=== PATIENT | male | born 1945 | race Caucasian/White ===

== ENCOUNTER 2019-01-31 01:25 | Emergency (ER) | payer MEDICARE ==
[2019-01-31] MEDS ORDERED: SODIUM CHLORIDE 0.9% 500 ML 500 ML IV STA (01:44)
[2019-01-31] MEDS ORDERED: ONDANSETRON 4 MG/2 ML VIAL IVP STA (01:44)
--- NOTE | 2019-01-31 01:46 | ED ---
Nausea/Vomiting/Diarrhea HPI - General Chief complaint: Nausea/Vomiting/Diarrhea Stated complaint: NVD Time Seen by Provider: 01/31/19 01:31 Source: patient Mode of arrival: EMS Limitations: no limitations - History of Present Illness MD complaint: nausea, vomiting, diarrhea -: hour(s) Description of Vomiting: watery Description of Diarrhea: water Location: diffuse Severity: mild Quality: cramping Consistency: intermittent Improves with: none Worsens with: none Associated Symptoms: diaphoresis - Related Data Previous Rx's Medication Instructions Recorded Dicyclomine [Bentyl] 20 mg PO QID #15 tablet 01/31/19 Ondansetron Odt [Zofran ODT] 4 mg PO Q8HR PRN #10 tab 01/31/19 Allergies Allergy/AdvReac Type Severity Reaction Status Date / Time No Known Allergies Allergy Verified 02/20/17 19:40 Review of Systems ROS Statement: Those systems with pertinent positive or pertinent negative responses have been documented in the HPI. ROS Other: All systems not noted in ROS Statement are negative. Constitutional: Denies: fever, chills Respiratory: Denies: cough, dyspnea Cardiovascular: Denies: chest pain, palpitations, edema Gastrointestinal: Reports: as per HPI, abdominal pain, nausea, vomiting, diarrhea Genitourinary: Denies: dysuria, hematuria, testicular pain, testicular mass Musculoskeletal: Denies: back pain Skin: Denies: rash Neurological: Denies: headache, weakness, numbness Past Medical History Past Medical History: Diabetes Mellitus, Hyperlipidemia History of Any Multi-Drug Resistant Organisms: None Reported Past Surgical History: No Surgical Hx Reported Additional Past Surgical History / Comment(s): R. inguinalk hernia repair, bilat catracts Past Psychological History: Anxiety, Depression Smoking Status: Former smoker Past Alcohol Use History: Rare Past Drug Use History: None Reported General Exam Limitations: no limitations General appearance: alert, in no apparent distress Head exam: Present: atraumatic, normocephalic Eye exam: Present: normal appearance. Absent: scleral icterus, conjunctival injection ENT exam: Present: mucous membranes dry Respiratory exam: Present: normal lung sounds bilaterally. Absent: respiratory distress, wheezes, rales, rhonchi, stridor Cardiovascular Exam: Present: regular rate, normal rhythm, normal heart sounds. Absent: systolic murmur, diastolic murmur, rubs, gallop GI/Abdominal exam: Present: soft. Absent: distended, tenderness, guarding, rebound, rigid, mass Extremities exam: Present: normal inspection, normal capillary refill. Absent: pedal edema, calf tenderness Back exam: Present: normal inspection. Absent: CVA tenderness (R), CVA tenderness (L) Neurological exam: Present: alert Skin exam: Present: warm, dry, intact, normal color. Absent: rash Course Vital Signs 01/31/19 01/31/19 01/31/19 01:27 05:01 05:21 Temperature 97.4 F L 98.7 F Pulse Rate 95 87 Respiratory 19 17 18 Rate Blood Pressure 100/65 102/78 O2 Sat by Pulse 94 L 98 Oximetry Medical Decision Making - Medical Decision Making Patient is 73-year-old man was hours vomiting and diarrhea. He has had marked improvement in his symptoms with medications here. The workup does show some nonspecific leukocytosis. Remainder of workup unremarkable. We discussed having reevaluation in a.m. unless he is back to normal. Discussed return parameters. - Lab Data Result diagrams: 01/31/19 01:35 01/31/19 01:35 Lab Results 01/31/19 01/31/19 01/31/19 Range/Units 01:35 01:35 03:30 WBC 16.9 H (3.8-10.6) k/uL RBC 4.63 (4.30-5.90) m/uL Hgb 14.2 (13.0-17.5) gm/dL Hct 43.4 (39.0-53.0) % MCV 93.7 (80.0-100.0) fL MCH 30.6 (25.0-35.0) pg MCHC 32.7 (31.0-37.0) g/dL RDW 13.7 (11.5-15.5) % Plt Count 243 (150-450) k/uL Neutrophils % 86 % Lymphocytes % 9 % Monocytes % 4 % Eosinophils % 1 % Basophils % 0 % Neutrophils # 14.5 H (1.3-7.7) k/uL Lymphocytes # 1.5 (1.0-4.8) k/uL Monocytes # 0.6 (0-1.0) k/uL Eosinophils # 0.1 (0-0.7) k/uL Basophils # 0.0 (0-0.2) k/uL Sodium 139 (137-145) mmol/L Potassium 3.9 (3.5-5.1) mmol/L Chloride 107 (98-107) mmol/L Carbon Dioxide 21 L (22-30) mmol/L Anion Gap 11 mmol/L BUN 12 (9-20) mg/dL Creatinine 0.58 L (0.66-1.25) mg/dL Est GFR (CKD-EPI)AfAm >90 (>60 ml/min/1.73 sqM) Est GFR (CKD-EPI)NonAf >90 (>60 ml/min/1.73 sqM) Glucose 209 H (74-99) mg/dL Calcium 9.0 (8.4-10.2) mg/dL Total Bilirubin 0.6 (0.2-1.3) mg/dL AST 18 (17-59) U/L ALT 25 (21-72) U/L Alkaline Phosphatase 116 (38-126) U/L Total Protein 5.9 L (6.3-8.2) g/dL Albumin 3.6 (3.5-5.0) g/dL Amylase 41 (30-110) U/L Lipase 48 (23-300) U/L Urine Color Yellow Urine Appearance Clear (Clear) Urine pH 5.5 (5.0-8.0) Ur Specific [place] 1.022 (1.001-1.035) Urine Protein Trace H (Negative) Urine Glucose (UA) 3+ H (Negative) Urine Ketones 1+ H (Negative) Urine Blood Negative (Negative) Urine Nitrite Negative (Negative) Urine Bilirubin Negative (Negative) Urine Urobilinogen <2.0 (<2.0) mg/dL Ur Leukocyte Esterase Negative (Negative) - EKG Data -: EKG Interpreted by Mi EKG shows normal: sinus rhythm, intervals (RI interval 176 ms, QRS duration 102 ms, both normal. 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
[2019-01-31 01:58] LABS: Basophils % (A) 0 %; Eosinophils # (A) 0.1 k/uL (0-0.7); Eosinophils % (A) 1 %; HCT 43.4 % (39.0-53.0); HGB 14.2 gm/dL (13.0-17.5); Lymphocytes # (A) 1.5 k/uL (1.0-4.8); Lymphocytes % (A) 9 %; MCH 30.6 pg (25.0-35.0); MCHC 32.7 g/dL (31.0-37.0); MCV 93.7 fL (80.0-100.0); Mean Platelet Volume 7.8; Monocytes # (A) 0.6 k/uL (0-1.0); Monocytes % (A) 4 %; Neutrophils # (A) 14.5 k/uL (1.3-7.7); Neutrophils % (A) 86 %; Platelet Count 243 k/uL (150-450); RBC 4.63 m/uL (4.30-5.90); RDW 13.7 % (11.5-15.5); WBC 16.9 k/uL (3.8-10.6)
[2019-01-31 02:03] LABS: ALT 25 U/L (21-72); AST 18 U/L (17-59); African American GFR (CKD) >90 (>60 ml/min/1.73 sqM); Albumin 3.6 g/dL (3.5-5.0); Alkaline Phosphatase 116 U/L (38-126); Amylase 41 U/L (30-110); Anion Gap 11 mmol/L; Blood Urea Nitrogen 12 mg/dL (9-20); Carbon Dioxide 21 mmol/L (22-30); Chloride 107 mmol/L (98-107); Glucose 209 mg/dL (74-99); Lipase 48 U/L (23-300); Potassium 3.9 mmol/L (3.5-5.1); Sodium 139 mmol/L (137-145); Total Bilirubin 0.6 mg/dL (0.2-1.3); Total Protein 5.9 g/dL (6.3-8.2)
--- NOTE | 2019-01-31 02:28 | XR ---
EXAM: XR Abdomen, 1 View CLINICAL HISTORY: ITS.REASON XR Reason: pain TECHNIQUE: Frontal supine view of the abdomen/pelvis. COMPARISON: No relevant prior studies available. FINDINGS: Gastrointestinal tract: Gaseous distention of the stomach. No small bowel dilation. Bones/joints: Unremarkable. IMPRESSION: See above
[2019-01-31 03:38] LABS: Appearance,Urine Clear (Clear); Bilirubin,Urine Negative (Negative); Blood,Urine Negative (Negative); Color,Urine Yellow; Glucose,Urine (UA) 3+ (Negative); Ketones,Urine 1+ (Negative); Leukocyte Esterase,Urine Negative (Negative); Nitrite,Urine Negative (Negative); PH, Urine 5.5 (5.0-8.0); Protein,Urine Trace (Negative); Specific Gravity,Urine 1.022 (1.001-1.035); Urobilinogen,Urine <2.0 mg/dL (<2.0)
[2019-01-31] MEDS ORDERED: PROMETHAZINE INJ 12.5 MG in SODIUM CHLORIDE 0.9% 50 ML IVPB STA (04:07)
[2019-01-31] MEDS ORDERED: DICYCLOMINE 20 MG TAB PO STA (04:07)
[2019-01-31 05:23] VITALS: BP 102/78; PULSE 87; RESP 18; TEMP 98.7
== END 2019-01-31 05:22 | disposition home or self-care (01) ==
LOC: EC 01:25
DX: K52.9 Noninfective gastroenteritis and colitis, unspecified (principal); D72.829 Elevated white blood cell count, unspecified; Z87.891 Personal history of nicotine dependence; Z98.890 Other specified postprocedural states; Z98.41 Cataract extraction status, right eye; Z98.42 Cataract extraction status, left eye
CPT/HCPCS: 96365; 96375; 96361; 36415; 80053; 82150; 83690; 81003; 85025; 74018; 99285; J2550; J2405

== ENCOUNTER 2019-04-02 00:16 | Emergency (ER) | payer MEDICARE ==
[2019-04-02 00:28] VITALS: RESP 20
[2019-04-02] MEDS ORDERED: methylPREDNISolone SOD SUCCI 125 MG/2 ML VIAL IV STA (00:35)
[2019-04-02] MEDS ORDERED: FAMOTIDINE 20 MG/2 ML VIAL IV STA (00:35)
[2019-04-02] MEDS ORDERED: diphenhydrAMINE 50 MG/ML 1 ML VIAL IVP STA (00:35)
[2019-04-02] MEDS ORDERED: SODIUM CHLORIDE 0.9% 500 ML 500 ML IV STA (00:36)
--- NOTE | 2019-04-02 00:42 | ED ---
Allergic Reaction HPI - General Chief complaint: Allergic Reaction Stated complaint: Allergic Reaction Time Seen by Provider: 04/02/19 00:35 Source: patient Mode of arrival: wheelchair Limitations: no limitations - History of Present Illness Initial Comments: 's patient is a 73-year-old man who presents to be evaluated for he believes is an ALLERGIC reaction. The patient states that symptoms started coming on sometime around 8 PM. Patient states he is not sure what he was exposed to, but he noticed that he was starting to have itching and developing hives. He states that he was affected mainly on the extremities and trunk. Patient initially was using some cortisone cream which she felt was helping to reduce itching a bit but then he continued having new hives develop so he decided to be seen here. Patient states he also feels just a touch short of breath. He denies swelling in the lips, tongue or throat. No vomiting or diarrhea. MD Complaint: allergic reaction, hives Onset/Timin -: days(s) Exposure: unknown Symptoms: rash, itching Severity: moderate Treatment Prior to Arrival: topical medicine Previous Allergy History: none - Related Data Previous Rx's Medication Instructions Recorded Dicyclomine [Bentyl] 20 mg PO QID #15 tablet 01/31/19 Ondansetron Odt [Zofran ODT] 4 mg PO Q8HR PRN #10 tab 01/31/19 predniSONE 60 mg PO DAILY #30 tab 04/02/19 Allergies Allergy/AdvReac Type Severity Reaction Status Date / Time No Known Allergies Allergy Verified 04/02/19 00:29 Review of Systems ROS Statement: Those systems with pertinent positive or pertinent negative responses have been documented in the HPI. ROS Other: All systems not noted in ROS Statement are negative. Constitutional: Denies: fever, chills ENT: Denies: throat pain Respiratory: Reports: dyspnea. Denies: cough, wheezes, hemoptysis Cardiovascular: Denies: chest pain, edema, syncope Gastrointestinal: Denies: abdominal pain, vomiting, diarrhea Skin: Reports: rash (Hives) Neurological: Denies: headache, weakness, numbness Past Medical History Past Medical History: Diabetes Mellitus, Hyperlipidemia History of Any Multi-Drug Resistant Organisms: None Reported Past Surgical History: No Surgical Hx Reported Additional Past Surgical History / Comment(s): R. inguinalk hernia repair, bilat catracts Past Psychological History: Anxiety, Depression Smoking Status: Former smoker Past Alcohol Use History: Rare Past Drug Use History: None Reported General Exam Limitations: no limitations General appearance: alert, in no apparent distress Head exam: Present: atraumatic, normocephalic Eye exam: Present: normal appearance. Absent: scleral icterus, conjunctival injection ENT exam: Present: normal oropharynx Neck exam: Present: normal inspection Respiratory exam: Present: normal lung sounds bilaterally. Absent: respiratory distress, wheezes, rales, rhonchi, stridor Cardiovascular Exam: Present: normal rhythm, tachycardia, normal heart sounds. Absent: systolic murmur, diastolic murmur, rubs, gallop GI/Abdominal exam: Present: soft. Absent: distended, tenderness, guarding, rebound, rigid, mass Extremities exam: Present: normal inspection, normal capillary refill. Absent: pedal edema, calf tenderness Back exam: Present: normal inspection Neurological exam: Present: alert Skin exam: Present: warm, dry, intact, normal color, urticaria (Patient has diffuse and confluent urticaria affecting trunk and all 4 extremities.) Course Vital Signs 04/02/19 00:25 Temperature 97.4 F L Pulse Rate 124 H Respiratory 20 Rate Blood Pressure 97/71 O2 Sat by Pulse 93 L Oximetry Medical Decision Making - Medical Decision Making Patient is 73-year-old man presenting with urticaria ALLERGIC reaction. Following medications he is feeling better. The urticaria is visibly fading. He requests to go home. He'll continue course of prednisone and also the Benadryl/Pepcid OTC. It appropriate follow-up as well as return parameters. - EKG Data -: EKG Interpreted by Me EKG shows normal: sinus rhythm, axis (Normal), intervals (Normal), QRS complexes (Possible old anterolateral infarct possible old inferior infarct), ST-T waves (Normal) Rate: tachycardia (Rate 1:15 bpm) Disposition Clinical Impression: Urticaria Disposition: HOME SELF-CARE Condition: Good Instructions (If sedation given, give patient instructions): Urticaria (ED) Prescriptions: predniSONE 60 mg PO DAILY #30 tab Is patient prescribed a controlled substance at d/c from ED?: No Referrals: Mike Pena MD [Primary Care Provider] - 1-2 days
[2019-04-02 02:46] VITALS: BP 109/71; PULSE 90; TEMP 98.1
== END 2019-04-02 02:25 | disposition home or self-care (01) ==
LOC: EC 00:16
DX: L50.0 Allergic urticaria (principal); R00.0 Tachycardia, unspecified; Z87.891 Personal history of nicotine dependence
CPT/HCPCS: 93005; 99283; 96374; 96375 ×2; 96361 ×2; J1200; J2930

== ENCOUNTER 2019-04-02 04:04 | Inpatient (IN) | payer MEDICARE ==
[2019-04-02] MEDS ORDERED: EPINEPHrine 1 MG/ML 1 ML AMP IV STA (04:16)
[2019-04-02] MEDS ORDERED: SODIUM CHLORIDE 0.9% 1,000 ML IV ONE (04:17)
[2019-04-02 04:38] LABS: Basophils % (A) 0 %; Eosinophils # (A) 0.1 k/uL (0-0.7); Eosinophils % (A) 0 %; HCT 46.6 % (39.0-53.0); HGB 15.2 gm/dL (13.0-17.5); Lymphocytes # (A) 0.9 k/uL (1.0-4.8); Lymphocytes % (A) 4 %; MCH 30.9 pg (25.0-35.0); MCHC 32.7 g/dL (31.0-37.0); MCV 94.5 fL (80.0-100.0); Mean Platelet Volume 7.6; Monocytes # (A) 0.4 k/uL (0-1.0); Monocytes % (A) 2 %; Neutrophils # (A) 20.9 k/uL (1.3-7.7); Neutrophils % (A) 93 %; Platelet Count 296 k/uL (150-450); RBC 4.93 m/uL (4.30-5.90); RDW 13.8 % (11.5-15.5); WBC 22.4 k/uL (3.8-10.6)
[2019-04-02 04:46] LABS: ALT 26 U/L (21-72); AST 24 U/L (17-59); African American GFR (CKD) >90 (>60 ml/min/1.73 sqM); Albumin 3.9 g/dL (3.5-5.0); Alkaline Phosphatase 101 U/L (38-126); Anion Gap 17 mmol/L; Blood Urea Nitrogen 14 mg/dL (9-20); Carbon Dioxide 16 mmol/L (22-30); Chloride 102 mmol/L (98-107); Glucose 236 mg/dL (74-99); Potassium 4.5 mmol/L (3.5-5.1); Sodium 135 mmol/L (137-145); Total Bilirubin 0.8 mg/dL (0.2-1.3); Total Protein 6.4 g/dL (6.3-8.2)
[2019-04-02] MEDS ORDERED: NALOXONE 0.4 MG/ML 1 ML VIAL IV PRN (06:08)
[2019-04-02] MEDS ORDERED: ACETAMINOPHEN TAB 325 MG TAB PO PRN (06:08)
--- NOTE | 2019-04-02 06:08 | ED ---
Allergic Reaction HPI - General Chief complaint: Allergic Reaction Stated complaint: Nausea, allergic reaction-revisit Time Seen by Provider: 04/02/19 04:16 Source: patient Mode of arrival: wheelchair Limitations: no limitations - History of Present Illness Initial Comments: This patient is a 73-year-old man who returns to be reevaluated for ALLERGY type symptoms. The patient had been seen here earlier in the night, treated with steroids and antihistamines, had some improvement and had gone home. He states that after going home the symptoms started to recur or he was having more itching and hives, and he was feeling a little bit short of breath. His symptoms had initially started in the evening (proximately 8 PM) and he is not sure exactly what he may have been exposed to. Patient denies vomiting or diarrhea. No fever or chills. MD Complaint: allergic reaction, hives, other (Dyspnea) -: hour(s) Exposure: unknown Symptoms: rash, itching, difficulty breathing Severity: moderate Treatment Prior to Arrival: benadryl, steroids Previous Allergy History: none - Related Data Home Medications Medication Instructions Recorded Confirmed Acetaminophen Tab [Tylenol] 500 - 1,000 mg PO Q4H PRN 04/02/19 04/02/19 Atorvastatin [Lipitor] 10 mg PO DAILY 04/02/19 04/02/19 Citalopram Hydrobromide [CeleXA] 20 mg PO DAILY 04/02/19 04/02/19 Colchicine [Colcrys] 0.6 mg PO DAILY 04/02/19 04/02/19 Dicyclomine [Bentyl] 20 mg PO TID 04/02/19 04/02/19 Naproxen Sodium [Aleve] 220 mg PO DAILY PRN 04/02/19 04/02/19 Ranitidine HCl [Zantac] 150 mg PO DAILY PRN 04/02/19 04/02/19 Tamsulosin [Flomax] 0.4 mg PO DAILY 04/02/19 04/02/19 Vits A,C,E/Lutein/Minerals 1 tab PO DAILY 04/02/19 04/02/19 [Ocuvite with Lutein Tablet] metFORMIN HCL [Glucophage] 1,000 mg PO BID 04/02/19 04/02/19 Previous Rx's Medication Instructions Recorded Ondansetron Odt [Zofran ODT] 4 mg PO Q8HR PRN #10 tab 01/31/19 Allergies Allergy/AdvReac Type Severity Reaction Status Date / Time No Known Allergies Allergy Verified 04/02/19 07:15 Review of Systems ROS Statement: Those systems with pertinent positive or pertinent negative responses have been documented in the HPI. ROS Other: All systems not noted in ROS Statement are negative. Constitutional: Denies: fever, chills, weakness ENT: Denies: throat pain, congestion Respiratory: Reports: as per HPI, dyspnea, wheezes. Denies: cough Cardiovascular: Denies: chest pain, edema, syncope Gastrointestinal: Denies: abdominal pain, nausea, vomiting Genitourinary: Denies: dysuria, hematuria Musculoskeletal: Denies: back pain Skin: Reports: as per HPI, rash Neurological: Denies: headache, weakness Past Medical History Past Medical History: Diabetes Mellitus, Hyperlipidemia History of Any Multi-Drug Resistant Organisms: None Reported Past Surgical History: No Surgical Hx Reported Additional Past Surgical History / Comment(s): R. inguinalk hernia repair, bilat catracts Past Psychological History: Anxiety, Depression Smoking Status: Former smoker Past Alcohol Use History: Rare Past Drug Use History: None Reported General Exam Limitations: no limitations General appearance: alert, in no apparent distress Head exam: Present: atraumatic, normocephalic Eye exam: Present: normal appearance. Absent: scleral icterus, conjunctival injection ENT exam: Present: normal oropharynx Respiratory exam: Present: wheezes. Absent: respiratory distress, rales, rhonchi, stridor Cardiovascular Exam: Present: normal rhythm, tachycardia, normal heart sounds. Absent: systolic murmur, diastolic murmur, rubs, gallop GI/Abdominal exam: Present: soft. Absent: distended, tenderness, guarding, rebound, rigid, mass Extremities exam: Present: normal inspection, normal capillary refill. Absent: pedal edema, calf tenderness Back exam: Present: normal inspection. Absent: CVA tenderness (R), CVA tenderness (L) Neurological exam: Present: alert Skin exam: Present: warm, dry, intact, normal color, urticaria Course Vital Signs 04/02/19 04/02/19 04/02/19 04:21 04:30 05:00 Temperature 97.9 F Pulse Rate 116 H 116 H 112 H Respiratory Rate Blood Pressure 102/71 112/72 107/79 O2 Sat by Pulse 89 L 93 L 94 L Oximetry 04/02/19 04/02/19 05:30 06:26 Temperature Pulse Rate 112 H 100 Respiratory 22 24 Rate Blood Pressure 115/65 98/64 O2 Sat by Pulse 91 L 96 Oximetry Medical Decision Making - Medical Decision Making Patient 73-year-old man with ALLERGIC reaction, including urticaria and now with some dyspnea and hypotension. Patient vital signs responding to epinephrine. Patient be admitted for further monitoring and continued medical therapy - Lab Data Result diagrams: 04/02/19 04:22 04/02/19 04:22 Lab Results 04/02/19 04/02/19 Range/Units 04:22 04:22 WBC 22.4 H (3.8-10.6) k/uL RBC 4.93 (4.30-5.90) m/uL Hgb 15.2 (13.0-17.5) gm/dL Hct 46.6 (39.0-53.0) % MCV 94.5 (80.0-100.0) fL MCH 30.9 (25.0-35.0) pg MCHC 32.7 (31.0-37.0) g/dL RDW 13.8 (11.5-15.5) % Plt Count 296 (150-450) k/uL Neutrophils % 93 % Lymphocytes % 4 % Monocytes % 2 % Eosinophils % 0 % Basophils % 0 % Neutrophils # 20.9 H (1.3-7.7) k/uL Lymphocytes # 0.9 L (1.0-4.8) k/uL Monocytes # 0.4 (0-1.0) k/uL Eosinophils # 0.1 (0-0.7) k/uL Basophils # 0.0 (0-0.2) k/uL Sodium 135 L (137-145) mmol/L Potassium 4.5 (3.5-5.1) mmol/L Chloride 102 (98-107) mmol/L Carbon Dioxide 16 L (22-30) mmol/L Anion Gap 17 mmol/L BUN 14 (9-20) mg/dL Creatinine 0.69 (0.66-1.25) mg/dL Est GFR (CKD-EPI)AfAm >90 (>60 ml/min/1.73 sqM) Est GFR (CKD-EPI)NonAf >90 (>60 ml/min/1.73 sqM) Glucose 236 H (74-99) mg/dL Calcium 9.0 (8.4-10.2) mg/dL Total Bilirubin 0.8 (0.2-1.3) mg/dL AST 24 (17-59) U/L ALT 26 (21-72) U/L Alkaline Phosphatase 101 (38-126) U/L Total Protein 6.4 (6.3-8.2) g/dL Albumin 3.9 (3.5-5.0) g/dL Disposition Clinical Impression: Anaphylaxis, Urticaria Disposition: ADMITTED IP TO THIS HOSP Condition: Serious
[2019-04-02] MEDS: methylPREDNISolone SOD SUCCI 125 MG/2 ML VIAL IV SCH ×4 (06:22→23:27)
[2019-04-02] MEDS: diphenhydrAMINE 50 MG/ML 1 ML VIAL IVP SCH ×4 (06:23→23:27)
[2019-04-02] MEDS: FAMOTIDINE 20 MG/2 ML VIAL IV SCH ×2 (06:24→16:28)
[2019-04-02] MEDS: SODIUM CHLORIDE 0.9% 1,000 ML IV SCH ×2 (06:24→16:11)
--- NOTE | 2019-04-02 06:53 | XR ---
EXAM: XR Chest, 1 View CLINICAL HISTORY: dyspnea TECHNIQUE: Frontal view of the chest. COMPARISON: No relevant prior studies available. FINDINGS: Lungs: Unremarkable. No consolidation. Pleural space: Unremarkable. No pneumothorax. Heart: Unremarkable. No cardiomegaly. Mediastinum: Unremarkable. Bones/joints: Unremarkable. IMPRESSION: No acute abnormality the chest.
[2019-04-02 09:25] VITALS: BMI 31.6
[2019-04-02 11:37] LABS: Glucose,Whole Blood 248 mg/dL (75-99)
[2019-04-02] MEDS: INSULIN ASPART (NovoLOG) 100 UNIT/ML VIAL SQ SCH ×3 (11:47→20:28)
--- NOTE | 2019-04-02 13:58 | P.HPIM ---
History of Present Illness H&P Date: 04/02/19 Chief Complaint: Drug reaction/anaphylaxis This is 73-year-old male one of Dr. Pena with a previous medical history significant for diabetes mellitus type 2, hyperlipidemia, enlarged prostate, overweight, gout, patient presented to the emergency department at [facility] admitted yesterday after he developed to have an increased rash in the upper extremities as well as bilateral upper thighs with increased itching in both palms after he took a Bentyl and Pepcid earlier today because of increased abdominal pain and discomfort along with heartburn, patient was treated with IV fluid as well as IV Solu-Medrol and he was released home he was doing fine 2 hours later developed evidence intense pruritus of both palms with increased rash all over his body including upper extremities lower extremities with increased welts and at the same time he developed to have increased about increased nausea and developed to have an increased wheezing and shortness breath without any drooling, he was dropped back into the ER he was given IV fluid resuscitation and epinephrine and he was started on Solu-Medrol 60 mg IV push every 6 hours Benadryl 50 mg IV push every 6 hours along with Pepcid he was admitted to the hospital for evaluation. Patient thinks that this is coming from Bentyl. Review of Systems Constitutional: Reports weight gain, Denies anorexia, Denies chronic headaches, Denies lethargy, Denies weakness Eyes: denies blurred vision, denies bulging eye, denies decreased vision, denies diplopia Ears: deny: decreased hearing Ears, nose, mouth and throat: Denies dysphagia, Denies neck lump, Denies swelling in throat, Denies sore throat Cardiovascular: Reports shortness of breath, Denies chest pain, Denies decreased exercise tolerance, Denies dyspnea on exertion, Denies edema, Denies lightheadedness, Denies rapid heart beat, Denies syncope Respiratory: Denies congestion, Denies cough, Denies cough with sputum, Denies home oxygen, Denies sleep apnea, Denies snoring, Denies wheezing Gastrointestinal: Reports nausea, Denies belching, Denies BRBPR, Denies heartburn, Denies hematemesis, Denies melena, Denies vomiting Genitourinary: Reports nocturia, Denies dysuria Musculoskeletal: Denies myalgias Musculoskeletal: absent: ankle pain, ankle stiffness, ankle swelling, elbow p ain, elbow stiffness, elbow swelling, foot pain, foot stiffness, foot swelling, hand pain, hand stiffness, hand swelling, hip pain, hip stiffness, hip swelling, knee pain, knee stiffness, knee swelling, shoulder pain, shoulder stiffness, shoulder swelling, wrist pain, wrist stiffness, wrist swelling Integumentary: Reports pruritus, Reports rash (Has significant demarcated rash with welts on the upper and lower extremities along with the torso.) Neurological: Denies numbness, Denies weakness Psychiatric: Reports depression, Denies anxiety, Denies sadness/tearfulness, Denies sleep disturbances, Denies suicidal ideation Endocrine: Denies fatigue, Denies weight change Past Medical History Past Medical History: Diabetes Mellitus, Hyperlipidemia, Osteoarthritis (OA), Prostate Disorder Additional Past Medical History / Comment(s): Hyper lipidemia, diabetes mellitus type 2, gout, osteoarthritis, depression History of Any Multi-Drug Resistant Organisms: None Reported Past Surgical History: No Surgical Hx Reported Additional Past Surgical History / Comment(s): R. inguinalk hernia repair, bilat catracts Past Psychological History: Anxiety, Depression Smoking Status: Former smoker Past Alcohol Use History: Rare Past Drug Use History: None Reported - Past Family History Mother Family Medical History: No Reported History (Mother at the age of 99 after hip fracture) Father Family Medical History: Cancer (Father age 59 from non-Hodgkin lymphoma.) Brother(s) Family Medical History: Unable to Obtain (Patient has no brothers) Sister(s) Family Medical History: Unable to Obtain (Patient has no sisters) Son(s) Family Medical History: No Reported History (Patient has 3 sons no major medical problems.) Medications and Allergies Home Medications Medication Instructions Recorded Confirmed Type Ondansetron Odt [Zofran ODT] 4 mg PO Q8HR PRN #10 tab 01/31/19 04/02/19 Rx Acetaminophen Tab [Tylenol] 500 - 1,000 mg PO Q4H PRN 04/02/19 04/02/19 History Atorvastatin [Lipitor] 10 mg PO DAILY 04/02/19 04/02/19 History Citalopram Hydrobromide [CeleXA] 20 mg PO DAILY 04/02/19 04/02/19 History Colchicine [Colcrys] 0.6 mg PO DAILY 04/02/19 04/02/19 History Dicyclomine [Bentyl] 20 mg PO TID 04/02/19 04/02/19 History Naproxen Sodium [Aleve] 220 mg PO DAILY PRN 04/02/19 04/02/19 History Ranitidine HCl [Zantac] 150 mg PO DAILY PRN 04/02/19 04/02/19 History Tamsulosin [Flomax] 0.4 mg PO DAILY 04/02/19 04/02/19 History Vits A,C,E/Lutein/Minerals 1 tab PO DAILY 04/02/19 04/02/19 History [Ocuvite with Lutein Tablet] metFORMIN HCL [Glucophage] 1,000 mg PO BID 04/02/19 04/02/19 History Allergies Allergy/AdvReac Type Severity Reaction Status Date / Time No Known Allergies Allergy Verified 04/02/19 07:15 Physical Exam Vitals: Vital Signs Temp Pulse Pulse Resp BP BP Pulse Ox 04/02/19 12:00 119 H 18 04/02/19 11:46 98.3 F 119 H 18 133/81 95 04/02/19 07:32 98.2 F 124 H 18 110/62 94 L 04/02/19 06:26 100 24 98/64 96 04/02/19 05:30 112 H 22 115/65 91 L 04/02/19 05:00 112 H 19 107/79 94 L 04/02/19 04:30 116 H 20 112/72 93 L 04/02/19 04:21 97.9 F 116 H 20 102/71 89 L Intake and Output 04/01/19 04/02/19 04/02/19 22:59 06:59 14:59 Other: Weight 103 kg - Constitutional General appearance: average body habitus, no acute distress - EENT Eyes: anicteric sclerae, EOMI, PERRLA, no ptosis, no scleral icterus, normal appearance ENT: hearing grossly normal, NA/AT, normal oropharynx, no thrush Ears: bilateral: normal - Neck Neck: no lymphadenopathy, normal ROM, no rigidity, no stridor, no thyromegaly Carotids: bilateral: upstroke normal Thyroid: bilateral: normal size - Respiratory Respiratory: bilateral: diminished, negative: dullness, rales, rhonchi, wheezing, prolonged expiration - Cardiovascular Rhythm: regular Heart sounds: normal: S1, S2 Abnormal Heart Sounds: no systolic murmur, no S3 Gallop, no S4 Gallop, no click - Gastrointestinal General gastrointestinal: normal bowel sounds, soft, no splenomegaly, no tenderness, no umbilical hernia, no ventral hernia - Integumentary Integumentary: normal, normal turgor - Neurologic Neurologic: CNII-XII intact - Musculoskeletal Musculoskeletal: gait normal, strength equal bilaterally - Psychiatric Psychiatric: A&O x's 3, appropriate affect, intact judgment & insight Results CBC & Chem 7: 04/02/19 04:22 04/02/19 04:22 Labs: Abnormal Lab Results - Last 24 Hours (Table) 04/02/19 04/02/19 04/02/19 Range/Units 04:22 04:22 11:35 WBC 22.4 H (3.8-10.6) k/uL Neutrophils # 20.9 H (1.3-7.7) k/uL Lymphocytes # 0.9 L (1.0-4.8) k/uL Sodium 135 L (137-145) mmol/L Carbon Dioxide 16 L (22-30) mmol/L Glucose 236 H (74-99) mg/dL POC Glucose (mg/dL) 248 H (75-99) mg/dL Thrombosis Risk Factor Assmnt - DVT/VTE Prophylaxis DVT/VTE Prophylaxis: Pharmacologic Prophylaxis ordered, Mechanical Prophylaxis ordered Assessment and Plan Assessment: Assessment and plan: 1. Anaphylactic reaction likely secondary to Bentyl. Continue IV fluid resuscitation the form of normal saline, continue Solu-Medrol 60 mg IV push every 6 hours, continue Benadryl 50 mg IV push every 6 hours and Pepcid 20 mg push every 12 hours, monitor the patient airways, no signs of angioedema at this point in time. Discontinue Bentyl. 2. Leukocytosis, likely reactive. Repeat CBC in the next 24 hours. 3. Mild metabolic acidosis with a bicarbonate of 16. Continue IV fluid resuscitation repeat CMP tomorrow morning. 4. Diabetes mellitus type 2. Discontinue metformin for now start the patient on sliding scale insulin. 5. Hyperlipidemia. Continue patient on Lipitor 10 mg orally once every day. 6. Depression. Continue citalopram 10 mg orally once every day. 7. Enlarged prostate. Continue with Flomax 0.4 mg orally once every day. 8. Gout. Continue colchicine 0.6 mg orally once every day. 9. Osteoarthritis. Clinically stable. 10. DVT prophylaxis. Heparin 5000 units subcutaneously every 8 hours. 12. GI prophylaxis. Continue Pepcid 20 mg push every 12 hours. 13. Admit to inpatient. Estimate a length of stay 2 midnights. 14. Patient is full code.
[2019-04-02] MEDS: HEPARIN SODIUM,PORCINE 5,000 UNIT/ML 1 ML VIAL SQ SCH ×2 (16:28→23:27)
[2019-04-02 16:38] LABS: Glucose,Whole Blood 292 mg/dL (75-99)
[2019-04-02 20:24] LABS: Glucose,Whole Blood 252 mg/dL (75-99)
[2019-04-03 06:07] LABS: Glucose,Whole Blood 210 mg/dL (75-99)
[2019-04-03] MEDS: INSULIN ASPART (NovoLOG) 100 UNIT/ML VIAL SQ SCH ×2 (06:27→12:20)
[2019-04-03] MEDS: FAMOTIDINE 20 MG/2 ML VIAL IV SCH (06:28)
[2019-04-03] MEDS: diphenhydrAMINE 50 MG/ML 1 ML VIAL IVP SCH ×2 (06:28→12:20)
[2019-04-03] MEDS: methylPREDNISolone SOD SUCCI 125 MG/2 ML VIAL IV SCH ×2 (06:29→12:20)
[2019-04-03 06:46] LABS: Basophils % (A) 0 %; Eosinophils % (A) 0 %; HCT 40.5 % (39.0-53.0); HGB 13.4 gm/dL (13.0-17.5); Lymphocytes % (A) 8 %; MCH 31.5 pg (25.0-35.0); MCHC 33.1 g/dL (31.0-37.0); MCV 95.1 fL (80.0-100.0); Mean Platelet Volume 7.3; Monocytes # (A) 0.4 k/uL (0-1.0); Monocytes % (A) 3 %; Neutrophils # (A) 10.5 k/uL (1.3-7.7); Neutrophils % (A) 88 %; Platelet Count 244 k/uL (150-450); RBC 4.26 m/uL (4.30-5.90); RDW 12.8 % (11.5-15.5); WBC 11.9 k/uL (3.8-10.6)
[2019-04-03 07:00] LABS: ALT 23 U/L (21-72); AST 23 U/L (17-59); African American GFR (CKD) >90 (>60 ml/min/1.73 sqM); Albumin 3.5 g/dL (3.5-5.0); Alkaline Phosphatase 59 U/L (38-126); Anion Gap 9 mmol/L; Blood Urea Nitrogen 17 mg/dL (9-20); Calcium 9.4 mg/dL (8.4-10.2); Carbon Dioxide 25 mmol/L (22-30); Chloride 103 mmol/L (98-107); Glucose 212 mg/dL (74-99); Potassium 4.7 mmol/L (3.5-5.1); Sodium 137 mmol/L (137-145); Total Bilirubin 0.7 mg/dL (0.2-1.3); Total Protein 5.9 g/dL (6.3-8.2)
[2019-04-03] MEDS: HEPARIN SODIUM,PORCINE 5,000 UNIT/ML 1 ML VIAL SQ SCH (08:28)
[2019-04-03] MEDS: SODIUM CHLORIDE 0.9% 1,000 ML IV SCH ×3 (08:28→12:21)
[2019-04-03] MEDS ORDERED: TAMSULOSIN 0.4 MG CAP.ER.24H PO SCH (09:00)
[2019-04-03] MEDS ORDERED: CITALOPRAM HYDROBROMIDE 20 MG TAB PO SCH (09:00)
[2019-04-03] MEDS ORDERED: VIT A,C & E-LUTEIN-MINERALS 1 EACH TAB PO SCH (09:00)
[2019-04-03] MEDS ORDERED: ATORVASTATIN 10 MG TAB PO SCH (09:00)
[2019-04-03] MEDS ORDERED: COLCHICINE 0.6 MG EACH PO SCH (09:00)
[2019-04-03 09:49] VITALS: RESP 20; TEMP 98
[2019-04-03 11:57] LABS: Glucose,Whole Blood 207 mg/dL (75-99)
[2019-04-03 12:46] VITALS: BP 116/61; PULSE 73
--- NOTE | 2019-04-03 17:59 | P.DS ---
Providers Date of admission: 04/02/19 06:09 Attending physician: Yesenia Heaton Primary care physician: Mike Pena [facility] Course: This is 73-year-old male one of Dr. Pena with a previous medical history significant for diabetes mellitus type 2, hyperlipidemia, enlarged prostate, overweight, gout, patient presented to the emergency department at [facility] admitted yesterday after he developed to have an increased rash in the upper extremities as well as bilateral upper thighs with increased itching in both palms after he took a Bentyl and Pepcid earlier today because of increased abdominal pain and discomfort along with heartburn, patient was treated with IV fluid as well as IV Solu-Medrol and he was released home he was doing fine 2 hours later developed evidence intense pruritus of both palms with increased rash all over his body including upper extremities lower extremities with increased welts and at the same time he developed to have increased about increased nausea and developed to have an increased wheezing and shortness b reath without any drooling, he was dropped back into the ER he was given IV fluid resuscitation and epinephrine and he was started on Solu-Medrol 60 mg IV push every 6 hours Benadryl 50 mg IV push every 6 hours along with Pepcid he was admitted to the hospital for evaluation. Patient thinks that this is coming from Bentyl. 04/03, rash has improved, patient has recurrent dyspepsia for which he was advised to quit this when up including a HIDA scan as an outpatient, we'll going to discontinue Aleve secondary dyspepsia, however we'll going to taper him down to oral prednisone secondary to the pruritic rash, patient feels well enough to go home today, he would be on oral prednisone tapering dose along with Prandin at noontime to be used only while on prednisone at breakfast . Patient does not have any angioedema symptoms, and is stable on discharge blood sugars are stable while here, PCP Dr. Pena to see in less than one week FINAL DIAGNOSIS 1. Anaphylactic reaction likely secondary to Bentyl. Resolved Continue IV fluid resuscitation the form of normal saline, continue Solu-Medrol 60 mg IV push every 6 hours, continue Benadryl 50 mg IV push every 6 hours and Pepcid 20 mg push every 12 hours, monitor the patient airways, no signs of angioedema at this point in time. Discontinue Bentyl. Oral prednisone on taper 2. Leukocytosis, likely reactive. Repeat CBC in the next 24 hours. 3. Mild metabolic acidosis with a bicarbonate of 16. Continue IV fluid resuscitation repeat CMP tomorrow morning. 4. Diabetes mellitus type 2. Discontinue metformin for now start the patient on sliding scale insulin. To start Prandin while on prednisone then Prandin can be discontinued 5. Hyperlipidemia. Continue patient on Lipitor 10 mg orally once every day. 6. Depression. Continue citalopram 10 mg orally once every day. 7. Enlarged prostate. Continue with Flomax 0.4 mg orally once every day. 8. Gout. Continue colchicine 0.6 mg orally once every day. 9. Osteoarthritis. Clinically stable. 10. DVT prophylaxis. Heparin 5000 units subcutaneously every 8 hours. 12. GI prophylaxis. Continue Pepcid 20 mg push every 12 hours. 13. Admit to inpatient. Estimate a length of stay 2 midnights. 14. Patient is full code. Discharge Medication List Ondansetron Odt [Zofran ODT] 4 mg PO Q8HR PRN #10 tab 01/31/19 [Rx] Acetaminophen Tab [Tylenol] 500 - 1,000 mg PO Q4H PRN 04/02/19 [History] Atorvastatin [Lipitor] 10 mg PO DAILY 04/02/19 [History] Citalopram Hydrobromide [CeleXA] 20 mg PO DAILY 04/02/19 [History] Colchicine [Colcrys] 0.6 mg PO DAILY 04/02/19 [History] Dicyclomine [Bentyl] 20 mg PO TID 04/02/19 [History] Ranitidine HCl [Zantac] 150 mg PO DAILY PRN 04/02/19 [History] Tamsulosin [Flomax] 0.4 mg PO DAILY 04/02/19 [History] Vits A,C,E/Lutein/Minerals [Ocuvite with Lutein Tablet] 1 tab PO DAILY 04/02/19 [History] metFORMIN HCL [Glucophage] 1,000 mg PO BID 04/02/19 [History] Repaglinide 0.5 mg PO AC-LUNCH #10 tablet 04/03/19 [Rx] predniSONE 40 mg PO DAILY #10 tab 04/03/19 [Rx] Patient Condition at Discharge: Good Plan - Discharge Summary New Discharge Prescriptions: New predniSONE 40 mg PO DAILY #10 tab Repaglinide 0.5 mg PO AC-LUNCH #10 tablet Continue Ondansetron Odt [Zofran ODT] 4 mg PO Q8HR PRN #10 tab PRN Reason: Nausea Tamsulosin [Flomax] 0.4 mg PO DAILY Ranitidine HCl [Zantac] 150 mg PO DAILY PRN PRN Reason: Heartburn Colchicine [Colcrys] 0.6 mg PO DAILY Citalopram Hydrobromide [CeleXA] 20 mg PO DAILY Acetaminophen Tab [Tylenol] 500 - 1,000 mg PO Q4H PRN PRN Reason: Pain Vits A,C,E/Lutein/Minerals [Ocuvite with Lutein Tablet] 1 tab PO DAILY metFORMIN HCL [Glucophage] 1,000 mg PO BID Atorvastatin [Lipitor] 10 mg PO DAILY Dicyclomine [Bentyl] 20 mg PO TID Discontinued Naproxen Sodium [Aleve] 220 mg PO DAILY PRN PRN Reason: Pain Discharge Medication List Ondansetron Odt [Zofran ODT] 4 mg PO Q8HR PRN #10 tab 01/31/19 [Rx] Acetaminophen Tab [Tylenol] 500 - 1,000 mg PO Q4H PRN 04/02/19 [History] Atorvastatin [Lipitor] 10 mg PO DAILY 04/02/19 [History] Citalopram Hydrobromide [CeleXA] 20 mg PO DAILY 04/02/19 [History] Colchicine [Colcrys] 0.6 mg PO DAILY 04/02/19 [History] Dicyclomine [Bentyl] 20 mg PO TID 04/02/19 [History] Ranitidine HCl [Zantac] 150 mg PO DAILY PRN 04/02/19 [History] Tamsulosin [Flomax] 0.4 mg PO DAILY 04/02/19 [History] Vits A,C,E/Lutein/Minerals [Ocuvite with Lutein Tablet] 1 tab PO DAILY 04/02/19 [History] metFORMIN HCL [Glucophage] 1,000 mg PO BID 04/02/19 [History] Repaglinide 0.5 mg PO AC-LUNCH #10 tablet 04/03/19 [Rx] predniSONE 40 mg PO DAILY #10 tab 04/03/19 [Rx] Follow up Appointment(s)/Referral(s): Mike Pena MD [Primary Care Provider] - 1-2 days Patient Instructions/Handouts: General Allergic Reaction (ED) Discharge Disposition: HOME SELF-CARE
== END 2019-04-03 13:30 | disposition home or self-care (01) | DRG 916 ==
LOC: EC 04:04 → 3SCARD 06:09
PROVIDERS: ADMIT Internal Medicine; ATTEND Internal Medicine
DX: T88.6XXA Anaphylactic reaction due to adverse effect of correct drug or medicament properly administered, initial encounter (principal); E87.2 Acidosis; T44.3X5A Adverse effect of other parasympatholytics [anticholinergics and antimuscarinics] and spasmolytics, initial encounter; Y84.8 Other medical procedures as the cause of abnormal reaction of the patient, or of later complication, without mention of misadventure at the time of the procedure; E11.9 Type 2 diabetes mellitus without complications; E78.5 Hyperlipidemia, unspecified; D72.829 Elevated white blood cell count, unspecified; E66.3 Overweight; F32.9 Major depressive disorder, single episode, unspecified; F41.9 Anxiety disorder, unspecified; N40.0 Benign prostatic hyperplasia without lower urinary tract symptoms; M19.90 Unspecified osteoarthritis, unspecified site; Z68.33 Body mass index [BMI] 33.0-33.9, adult; Z79.84 Long term (current) use of oral hypoglycemic drugs; Z79.899 Other long term (current) drug therapy; Z98.890 Other specified postprocedural states; Z87.891 Personal history of nicotine dependence; Z87.39 Personal history of other diseases of the musculoskeletal system and connective tissue; Z80.7 Family history of other malignant neoplasms of lymphoid, hematopoietic and related tissues
CPT/HCPCS: 36415; 71045; 80053; 85025; 93005; 96361; 96372; 96374; 96375; 99283; 99285

== ENCOUNTER → 2019-04-09 | Outpatient (CLI) | payer MEDICARE ==
--- NOTE | 2019-04-09 16:22 | US ---
EXAMINATION TYPE: US abdomen complete DATE OF EXAM: 04/09/2019 COMPARISON: NONE CLINICAL HISTORY: R10.9 abdominal pain. RUQ pain EXAM MEASUREMENTS: Liver Length: 13.4 cm Gallbladder Wall: 0.3 cm CBD: 0.5 cm Spleen: 9.4 cm Right Kidney: 11.6 x 4.4 x 4.4 cm Left Kidney: 13.1 x 6.2 x 4.6 cm Technical limitations due to large amount of overlying bowel content Pancreas: Obscured by bowel gas Liver: appears wnl Gallbladder: dense echogenic areas anterior fundus with ring down artifact, possible adenomyomatosis Evidence for sonographic Carrera's sign: no CBD: appears wnl Spleen: granulomas Right Kidney: lobulated contour Left Kidney: lobulated contour, possible mild hydroureter. There may be some masslike area in the po sterior mid left renal cortex. Recommend CT with contrast for additional evaluation. Upper IVC: wnl Abd Aorta: limited evaluation due to overlying bowel content, visualized portions appear wnl IMPRESSION: 1. Hypodense masslike area may be within the mid to inferior left renal cortex. CT with contrast magdy mmended for additional workup. 2. Consider adenomyomatosis of the gallbladder.
== END | disposition home or self-care (01) ==
LOC: RADUSWWP 09:16
PROVIDERS: ATTEND Internal Medicine Geriatric Medicine
DX: K82.9 Disease of gallbladder, unspecified (principal)
CPT/HCPCS: 76700

== ENCOUNTER → 2019-04-27 | Outpatient (CLI) | payer MEDICARE ==
[2019-04-27 16:48] LABS: African American GFR (CKD) >90 (>60 ml/min/1.73 sqM); Blood Urea Nitrogen 14 mg/dL (9-20)
--- NOTE | 2019-04-27 21:45 | CT ---
EXAMINATION TYPE: CT abdomen w con DATE OF EXAM: 04/27/2019 COMPARISON: Complete abdominal ultrasound April 09, 2019 HISTORY: renal cyst CT DLP: 1245 mGycm, Automated Exposure Control for Dose Reduction was Utilized. CONTRAST: CT scan of the abdomen is performed with oral and with IV Contrast, patient injected with 100 mL of I sovue 300. FINDINGS: LUNG BASES: Incidental 4 mm right lower lobe nodule axial image 1. LIVER/GB: Visualized liver heterogeneously hypodense relative to spleen consistent with mild diffuse fatty infiltration correlates with heterogeneity on ultrasound. No CT dense intraluminal gallstones. No surrounding inflammatory change. PANCREAS: No significant abnormality is seen. SPLEEN: No significant abnormality is seen. ADRENALS: No significant abnormality is seen. KIDNEYS: Symmetric cortical medullary uptake and excretion from both kidneys without hydronephrosis s een bilaterally. There are prominent central simple appearing parapelvic cysts bilaterally. No suspi cious solid or cystic renal mass in either kidney. BOWEL: Oral contrast does not reach colonic level. No suspicious small or large bowel dilatation LYMPH NODES: No greater than 1cm abdominal lymph nodes are appreciated. OSSEOUS STRUCTURES: Vacuum disc phenomenon with mild disc space narrowing lower lumbar levels and fac et arthropathy identified. OTHER: No significant additional abnormality is seen. IMPRESSION: No suspicious renal mass identified bilaterally with particular attention to the left ki dney and area of ultrasound concern. There are incidental prominent parapelvic cysts bilaterally seen better on CT versus ultrasound. No hydronephrosis is noted.
== END | disposition home or self-care (01) ==
LOC: RADCTMAIN 16:08
PROVIDERS: ATTEND Internal Medicine Geriatric Medicine
DX: N28.1 Cyst of kidney, acquired (principal)
CPT/HCPCS: 82565; 84520; 74160; 36415; Q9967

== ENCOUNTER → 2023-01-08 | Outpatient (CLI) | payer MEDICARE ==
[2023-01-08 16:12] LABS: Basophils # (A) 0.03 X 10*3/uL (0.00-0.10); Basophils % (A) 0.4 %; Eosinophils # (A) 0.11 X 10*3/uL (0.04-0.35); Eosinophils % (A) 1.3 %; HCT 43.6 % (39.6-50.0); HGB 14.2 d/dL (12.0-15.0); Lymphocytes # (A) 1.98 X 10*3/uL (0.90-5.00); Lymphocytes % (A) 23.4 %; MCH 31.9 pg (27.0-32.0); MCHC 32.6 d/dL (32.0-37.0); Mean Platelet Volume 10.2 FL (9.5-12.2); Monocytes # (A) 0.48 X 10*3/uL (0.20-1.00); Monocytes % (A) 5.7 %; NRBC Per 100 WBC 0 X 10*3/uL (0.00-0.01); Neutrophils # (A) 5.82 X 10*3/uL (1.80-7.70); Neutrophils % (A) 68.8 %; Platelet Count 245 X 10*3/uL (140-440); RBC 4.45 X 10*6/uL (4.40-5.60); RDW 13.5 % (11.5-14.5); WBC 8.45 X 10*3/uL (4.50-10.00)
[2023-01-08 16:46] LABS: ALT 18 U/L (10-49); AST 18 U/L (14-35); Blood Urea Nitrogen 6.6 mg/dL (9.0-27.0)
[2023-01-09 12:51] LABS: Hepatitis B Virus DNA Not detected (Not detected); Hepatitis B Virus DNA, Quant <10 IU/mL (<10); Log HBV IU/mL <1.00 (<1.00)
== END | disposition home or self-care (01) ==
LOC: LABWHC1 10:27
PROVIDERS: ATTEND Dermatology MOHS-Micrographic Surgery
DX: L40.0 Psoriasis vulgaris (principal)
CPT/HCPCS: 36415; 82565; 84450; 84460; 84520; 85025; 86803; 87517

== ENCOUNTER → 2023-01-15 | Outpatient (CLI) | payer MEDICARE ==
[2023-01-15 15:34] LABS: Basophils # (A) 0.03 X 10*3/uL (0.00-0.10); Basophils % (A) 0.3 %; Eosinophils # (A) 0.11 X 10*3/uL (0.04-0.35); HCT 45.4 % (39.6-50.0); HGB 14.3 d/dL (12.0-15.0); Lymphocytes # (A) 2.02 X 10*3/uL (0.90-5.00); Lymphocytes % (A) 18.6 %; MCH 30.8 pg (27.0-32.0); MCHC 31.5 d/dL (32.0-37.0); MCV 97.8 FL (80.0-97.0); Mean Platelet Volume 10.2 FL (9.5-12.2); Monocytes # (A) 0.71 X 10*3/uL (0.20-1.00); Monocytes % (A) 6.5 %; NRBC Per 100 WBC 0 X 10*3/uL (0.00-0.01); Neutrophils # (A) 7.96 X 10*3/uL (1.80-7.70); Neutrophils % (A) 73.2 %; Platelet Count 284 X 10*3/uL (140-440); RBC 4.64 X 10*6/uL (4.40-5.60); RDW 13.3 % (11.5-14.5); WBC 10.87 X 10*3/uL (4.50-10.00)
[2023-01-15 16:01] LABS: ALT 17 U/L (10-49); AST 17 U/L (14-35); Blood Urea Nitrogen 9.4 mg/dL (9.0-27.0)
== END | disposition home or self-care (01) ==
LOC: LABWHC1 09:45
PROVIDERS: ATTEND Dermatology MOHS-Micrographic Surgery
DX: L40.0 Psoriasis vulgaris (principal)
CPT/HCPCS: 36415; 82565; 84450; 84460; 84520; 85025

== ENCOUNTER → 2023-02-13 | Outpatient (CLI) | payer MEDICARE ==
--- NOTE | 2023-02-13 11:45 | CT ---
EXAMINATION TYPE: CT facial bones wo con CT DLP: 630.30 mGycm, Automated exposure control for dose reduction was used. DATE OF EXAM: 02/13/2023 11:17 AM COMPARISON: None CLINICAL INDICATION:Male, 77 years old with history of J32.9 sinusitis; PHH, sinusitis/ETD IN R EAR TECHNIQUE: Multiple unenhanced axial CT images were obtained of the facial bones soft tissue and bone windows. Coronal, axial and sagittal reformatted images were also provided in soft tissue and bone windows and submitted for interpretation. Additional 3-D reformatted images were obtained on a [employer] workstation. FINDINGS: There is minimal mucosal thickening present within the paranasal sinuses. The mucosal thickening is m ost pronounced in the inferior aspect of the maxillary sinuses. The ostiomeatal units the frontoethmo idal and sphenoethmoidal recesses are patent. Atherosclerosis of the carotid arteries at the bifurcations partially visualized. Multilevel degenera tion changes throughout the spine. Bilateral aphakia. The mastoid air cells are opacified on the right. Mastoid air cells are well pneumatized. No evidence for mucosal mass in the expected location of the eustachian tube within the nasopharynx. IMPRESSION: 1. No significant paranasal sinus disease. 2. Right mastoid air cell effusion correlate for mastoiditis. 3. No mass visualized in the nasopharynx in the expected location of the right eustachian tube.
== END | disposition home or self-care (01) ==
LOC: RADCTMAIN 10:57
PROVIDERS: ATTEND Internal Medicine Geriatric Medicine
DX: J32.9 Chronic sinusitis, unspecified (principal); H74.8X1 Other specified disorders of right middle ear and mastoid
CPT/HCPCS: 70486

== ENCOUNTER 2023-02-28 17:35 | Emergency (ER) | payer MEDICARE, BC ==
[2023-02-28 18:14] VITALS: TEMP 97.6
[2023-02-28] MEDS ORDERED: SODIUM CHLORIDE 0.9% 1,000 ML IV STA (18:56)
[2023-02-28] MEDS ORDERED: KETOROLAC 15 MG/ML 1 ML VIAL IVP STA (18:58)
--- NOTE | 2023-02-28 18:59 | ED ---
General Adult HPI - General Chief complaint: Weakness Stated complaint: Weakness,History of Bone Infection/ETD Time Seen by Provider: 02/28/23 18:30 Source: patient Mode of arrival: ambulatory Limitations: no limitations - History of Present Illness Initial comments: 77-year-old male presenting to the ED with a chief complaint of fatigue. Patient states has and is currently being treated for mastoiditis. She had CT here on 02/13/23 showing evidence of this and he currently follows with ENT. States for the past few weeks has had symptoms of dizziness and fatigued. Patient states that "his patient's has run out". Patient reports no new symptoms. Denies chest pain or shortness of breath. No other complaints. - Related Data Home Medications Medication Instructions Recorded Confirmed Atorvastatin [Lipitor] 10 mg PO DAILY 04/02/19 02/28/23 Citalopram Hydrobromide [CeleXA] 20 mg PO DAILY 04/02/19 02/28/23 Tamsulosin [Flomax] 0.4 mg PO DAILY 04/02/19 02/28/23 metFORMIN HCL [Glucophage] 500 mg PO BID-W/MEALS 04/02/19 02/28/23 ALPRAZolam [Xanax] 0.5 mg PO DAILY PRN 02/28/23 02/28/23 ALPRAZolam [Xanax] 0.5 mg PO HS 02/28/23 02/28/23 Albuterol Inhaler [Ventolin Hfa 1 - 2 puff INHALATION RT-Q6H PRN 02/28/23 02/28/23 Inhaler] Apremilast [Otezla] 30 mg PO BID 02/28/23 02/28/23 Budesonide [Pulmicort Flexhaler] 1 puff INHALATION RT-BID 02/28/23 02/28/23 Cetirizine HCl [Zyrtec] 10 mg PO DAILY 02/28/23 02/28/23 Dulaglutide [Trulicity] 1.5 mg SQ TH 02/28/23 02/28/23 Fluticasone Nasal [place] [Flonase 1 spray EA NOSTRIL Q8H 02/28/23 02/28/23 Nasal [place]] Losartan [Cozaar] 50 mg PO DIRECTED 02/28/23 02/28/23 Meclizine HCl [Dramamine] 25 mg PO DAILY 02/28/23 02/28/23 Mirtazapine [Remeron] 15 mg PO HS 02/28/23 02/28/23 Previous Rx's Medication Instructions Recorded Amoxic-Pot Clav 875-125Mg 1 tab PO Q12HR 14 Days #24 tab 02/28/23 [Augmentin 875-125] Ibuprofen [Motrin] 600 mg PO Q8HR PRN #30 tab 02/28/23 Allergies Allergy/AdvReac Type Severity Reaction Status Date / Time dicyclomine [From Bentyl] Allergy Anaphylaxis Verified 02/28/23 22:37 Review of Systems ROS Statement: Those systems with pertinent positive or pertinent negative responses have been documented in the HPI. ROS Other: All systems not noted in ROS Statement are negative. Past Medical History Past Medical History: Diabetes Mellitus, Hyperlipidemia, Osteoarthritis (OA), Prostate Disorder Additional Past Medical History / Comment(s): Hyper lipidemia, diabetes mellitus type 2, gout, osteoarthritis, depression History of Any Multi-Drug Resistant Organisms: None Reported Past Surgical History: No Surgical Hx Reported Additional Past Surgical History / Comment(s): R. inguinalk hernia repair, bilat catracts Past Psychological History: Anxiety, Depression Smoking Status: Current every day smoker Past Alcohol Use History: Rare Past Drug Use History: None Reported - Past Family History Mother Family Medical History: No Reported History (Mother at the age of 99 after hip fracture) Father Family Medical History: Cancer (Father age 59 from non-Hodgkin lymphoma.) Brother(s) Family Medical History: Unable to Obtain (Patient has no brothers) Sister(s) Family Medical History: Unable to Obtain (Patient has no sisters) Son(s) Family Medical History: No Reported History (Patient has 3 sons no major medical problems.) General Exam Limitations: no limitations General appearance: alert, in no apparent distress ENT exam: Present: other (No Erythema of the mastoid process or bony tenderness to palpation.) Respiratory exam: Present: normal lung sounds bilaterally Cardiovascular Exam: Present: regular rate, normal rhythm GI/Abdominal exam: Present: soft Neurological exam: Present: alert, oriented X3 Skin exam: Present: warm, dry Course Vital Signs 02/28/23 02/28/23 18:10 22:18 Temperature 97.6 F Pulse Rate 122 H 98 Respiratory 18 20 Rate Blood Pressure 95/63 129/80 O2 Sat by Pulse 97 96 Oximetry Medical Decision Making - Medical Decision Making Was pt. sent in by a medical professional or institution (KYLE Hutton, [employer], urgent care, hospital, or skilled nursing...) When possible be specific @ -No Did you speak to anyone other than the patient for history (EMS, parent, family, police, friend...)? What history was obtained from this source @ -No Did you review nursing and triage notes (agree or disagree)? Why? @ -I reviewed and agree with nursing and triage notes Were old charts reviewed (outside hosp., previous admission, EMS record, old EKG, old radiological studies, urgent care reports/EKG's, skilled nursing records)? Report findings @ -Old computed tomography scan reviewed showing evidence of mastoiditis on 02/13/23. Differential Diagnosis (chest pain, altered mental status, abdominal pain women, abdominal pain men, vaginal bleeding, weakness, fever, dyspnea, syncope, headache, dizziness, GI bleed, back pain, seizure, CVA, palpatations, mental health, musculoskeletal)? @ -Differential Weakness: Hypoglycemia, shock, sepsis, hyponatremia, anemia, infection, VT, ETOH, adverse medicine reaction, overdose, stroke, this is not meant to be an all-inclusive list. EKG interpreted by me (3pts min.). @ -As above X-rays interpreted by me (1pt min.). @ -None done CT interpreted by me (1pt min.). @ -CT showed evidence of mastoiditis unchanged from prior on 02/13/23. U/S interpreted by me (1pt. min.). @ -None done What testing was considered but not performed or refused? (CT, X-rays, U/S, labs)? Why? @ -None What meds were considered but not given or refused? Why? @ -None Did you discuss the management of the patient with other professionals ( professionals i.e. KYLE Hutton, [employer], lab, RT, psych nurse, nephrology social worker, anesthesiology tech, teacher, second officer, showcase maker)? Give summary @ -Spoke to Dr. Negron ED physician at [facility] who stated if patient would be transferred he would be happy to accept. Spoke to Dr. Toro of ENT. He noted that mastoid air effusion unlikely to resolve in this time and noted that these findings are expected however did recommend additional 2 week course of Augmentin and follow-up with ENT as scheduled. Advised return precautions for the patient. Was smoking cessation discussed for >3mins.? @ -No Was critical care preformed (if so, how long)? @ -No Were there social determinants of health that impacted care today? How? (Homelessness, low income, unemployed, alcoholism, drug addiction, trans portation, low edu. Level, literacy, decrease access to med. care, longterm, rehab)? @ -No Was there de-escalation of care discussed even if they declined (Discuss DNR or withdrawal of care, Hospice)? DNR status @ -No What co-morbidities impacted this encounter? (DM, HTN, Smoking, COPD, CAD, Cancer, CVA, ARF, Chemo, Hep., AIDS, mental health diagnosis, sleep apnea, morbid obesity)? @ -None Was patient admitted / discharged? Hospital course, mention meds given and route, prescriptions, significant lab abnormalities, going to OR and other pertinent info. @ -Discharge. Laboratory studies reveal no significant abnormalities. As patient reports no new symptoms and states symptoms are consistent with his current diagnosis of mastoiditis/sinusitis, advised to maintain current medication regimen as prescribed by ENT with addition of Augmentin for the next 2 weeks. Advised to follow-up with ENT as scheduled. Discussed return precautions with patient who verbalizes agreement. Undiagnosed new problem with uncertain prognosis? @ -No Drug Therapy requiring intensive monitoring for toxicity (Heparin, Nitro, Insulin, Cardizem)? @ -No Were any procedures done? @ -No Diagnosis/symptom? @ -Mastoiditis/sinusitis Acute, or Chronic, or Acute on Chronic? @ -Acute Uncomplicated (without systemic symptoms) or Complicated (systemic symptoms)? @ -Uncomplicated Side effects of treatment? @ -No Exacerbation, Progression, or Severe Exacerbation? @ -No Poses a threat to life or bodily function? How? (Chest pain, USA, VT, pneumonia, PE, COPD, DKA, ARF, appy, cholecystitis, CVA, Diverticulitis, Homicidal, Suicidal, threat to staff... and all critical care pts) @ -No - Lab Data Result diagrams: 02/28/23 19:21 02/28/23 19:21 Lab Results 0802/28/23 02/28/23 Range/Units 19:21 19:21 19:21 WBC 13.8 H (3.8-10.6) k/uL RBC 4.58 (4.30-5.90) m/uL Hgb 15.1 (13.0-17.5) gm/dL Hct 44.6 (39.0-53.0) % MCV 97.3 (80.0-100.0) fL MCH 32.9 (25.0-35.0) pg MCHC 33.8 (31.0-37.0) g/dL RDW 13.0 (11.5-15.5) % Plt Count 188 (150-450) k/uL MPV 7.7 Neutrophils % 76 % Lymphocytes % 17 % Monocytes % 5 % Eosinophils % 1 % Basophils % 0 % Neutrophils # 10.4 H (1.3-7.7) k/uL Lymphocytes # 2.4 (1.0-4.8) k/uL Monocytes # 0.7 (0-1.0) k/uL Eosinophils # 0.1 (0-0.7) k/uL Basophils # 0.0 (0-0.2) k/uL PT 11.1 (9.0-12.0) sec INR 1.1 (<1.2) APTT 22.4 (22.0-30.0) sec Sodium 132 L (137-145) mmol/L Potassium 4.2 (3.5-5.1) mmol/L Chloride 103 (98-107) mmol/L Carbon Dioxide 20 L (22-30) mmol/L Anion Gap 9 mmol/L BUN 11 (9-20) mg/dL Creatinine 0.66 (0.66-1.25) mg/dL Est GFR (CKD-EPI)AfAm >90 (>60 ml/min/1.73 sqM) Est GFR (CKD-EPI)NonAf >90 (>60 ml/min/1.73 sqM) Glucose 110 H (74-99) mg/dL Calcium 8.9 (8.4-10.2) mg/dL Total Bilirubin 0.5 (0.2-1.3) mg/dL AST 26 (17-59) U/L ALT 28 (4-49) U/L Alkaline Phosphatase 108 (38-126) U/L Troponin I (0.000-0.034) ng/mL Total Protein 5.8 L (6.3-8.2) g/dL Albumin 3.3 L (3.5-5.0) g/dL Urine Color Urine Appearance (Clear) Urine pH (5.0-8.0) Ur Specific [place] (1.001-1.035) Urine Protein (Negative) Urine Glucose (UA) (Negative) Urine Ketones (Negative) Urine Blood (Negative) Urine Nitrite (Negative) Urine Bilirubin (Negative) Urine Urobilinogen (<2.0) mg/dL Ur Leukocyte Esterase (Negative) 02/28/23 02/28/23 Range/Units 19:21 19:21 WBC (3.8-10.6) k/uL RBC (4.30-5.90) m/uL Hgb (13.0-17.5) gm/dL Hct (39.0-53.0) % MCV (80.0-100.0) fL MCH (25.0-35.0) pg MCHC (31.0-37.0) g/dL RDW (11.5-15.5) % Plt Count (150-450) k/uL MPV Neutrophils % % Lymphocytes % % Monocytes % % Eosinophils % % Basophils % % Neutrophils # (1.3-7.7) k/uL Lymphocytes # (1.0-4.8) k/uL Monocytes # (0-1.0) k/uL Eosinophils # (0-0.7) k/uL Basophils # (0-0.2) k/uL PT (9.0-12.0) sec INR (<1.2) APTT (22.0-30.0) sec Sodium (137-145) mmol/L Potassium (3.5-5.1) mmol/L Chloride (98-107) mmol/L Carbon Dioxide (22-30) mmol/L Anion Gap mmol/L BUN (9-20) mg/dL Creatinine (0.66-1.25) mg/dL Est GFR (CKD-EPI)AfAm (>60 ml/min/1.73 sqM) Est GFR (CKD-EPI)NonAf (>60 ml/min/1.73 sqM) Glucose (74-99) mg/dL Calcium (8.4-10.2) mg/dL Total Bilirubin (0.2-1.3) mg/dL AST (17-59) U/L ALT (4-49) U/L Alkaline Phosphatase (38-126) U/L Troponin I <0.012 (0.000-0.034) ng/mL Total Protein (6.3-8.2) g/dL Albumin (3.5-5.0) g/dL Urine Color Yellow Urine Appearance Clear (Clear) Urine pH 5.5 (5.0-8.0) Ur Specific [place] 1.018 (1.001-1.035) Urine Protein Negative (Negative) Urine Glucose (UA) Trace H (Negative) Urine Ketones Negative (Negative) Urine Blood Negative (Negative) Urine Nitrite Negative (Negative) Urine Bilirubin Negative (Negative) Urine Urobilinogen <2.0 (<2.0) mg/dL Ur Leukocyte Esterase Negative (Negative) - EKG Data EKG Comments: EKG shows a sinus rhythm at 69 bpm with a first-degree AV block with a AK interval of 216 ms. QRS 82, QT/QTc 360/407. No acute ST or T-wave changes. Disposition Clinical Impression: Mastoiditis Disposition: HOME SELF-CARE Condition: Good Instructions (If sedation given, give patient instructions): Mastoiditis (ED) Additional Instructions: Please return to the Emergency Department if symptoms worsen or any other concerns. Prescriptions: Amoxic-Pot Clav 875-125Mg [Augmentin 875-125] 1 tab PO Q12HR 14 Days #24 tab Ibuprofen [Motrin] 600 mg PO Q8HR PRN #30 tab PRN Reason: Pain Is patient prescribed a controlled substance at d/c from ED?: No Referrals: Mike Pena MD [Primary Care Provider] - 1-2 days Time of Disposition: 23:25
[2023-02-28 19:54] LABS: Basophils % (A) 0 %; Eosinophils # (A) 0.1 k/uL (0-0.7); Eosinophils % (A) 1 %; HCT 44.6 % (39.0-53.0); HGB 15.1 gm/dL (13.0-17.5); Lymphocytes # (A) 2.4 k/uL (1.0-4.8); Lymphocytes % (A) 17 %; MCH 32.9 pg (25.0-35.0); MCHC 33.8 g/dL (31.0-37.0); MCV 97.3 fL (80.0-100.0); Mean Platelet Volume 7.7; Monocytes # (A) 0.7 k/uL (0-1.0); Monocytes % (A) 5 %; Neutrophils # (A) 10.4 k/uL (1.3-7.7); Neutrophils % (A) 76 %; Platelet Count 188 k/uL (150-450); RBC 4.58 m/uL (4.30-5.90); WBC 13.8 k/uL (3.8-10.6)
[2023-02-28 20:10] LABS: ALT 28 U/L (4-49); AST 26 U/L (17-59); African American GFR (CKD) >90 (>60 ml/min/1.73 sqM); Albumin 3.3 g/dL (3.5-5.0); Alkaline Phosphatase 108 U/L (38-126); Anion Gap 9 mmol/L; Blood Urea Nitrogen 11 mg/dL (9-20); Calcium 8.9 mg/dL (8.4-10.2); Carbon Dioxide 20 mmol/L (22-30); Chloride 103 mmol/L (98-107); Glucose 110 mg/dL (74-99); Non-African American GFR(CKD) >90 (>60 ml/min/1.73 sqM); Potassium 4.2 mmol/L (3.5-5.1); Sodium 132 mmol/L (137-145); Total Bilirubin 0.5 mg/dL (0.2-1.3); Total Protein 5.8 g/dL (6.3-8.2)
[2023-02-28 20:18] LABS: Appearance,Urine Clear (Clear); Bilirubin,Urine Negative (Negative); Blood,Urine Negative (Negative); Color,Urine Yellow; Glucose,Urine (UA) Trace (Negative); Ketones,Urine Negative (Negative); Leukocyte Esterase,Urine Negative (Negative); Nitrite,Urine Negative (Negative); PH, Urine 5.5 (5.0-8.0); Protein,Urine Negative (Negative); Specific Gravity,Urine 1.018 (1.001-1.035); Urobilinogen,Urine <2.0 mg/dL (<2.0)
[2023-02-28 20:22] LABS: INR 1.1 (<1.2); Partial Thromboplastin Time 22.4 sec (22.0-30.0); Prothrombin Time 11.1 sec (9.0-12.0)
--- NOTE | 2023-02-28 21:25 | CT ---
EXAMINATION TYPE: CT facial bones w con CT DLP: 624.9 mGycm, Automated exposure control for dose reduction was used. DATE OF EXAM: 02/28/2023 9:10 PM COMPARISON: 02/13/2023. CLINICAL INDICATION:Male, 77 years old with history of r/o worsening mastoiditis/abscess; PHH, r/o wo rsening mastoiditis/abscess TECHNIQUE: Multiple unenhanced axial CT images were obtained of the facial bones soft tissue and bone windows. Coronal, axial and sagittal reformatted images were also provided in soft tissue and bone windows and submitted for interpretation. Additional 3-D reformatted images were obtained on a [employer] workstation. FINDINGS: Bilateral aphakia. Intracranial vasculature appears patent. There is opacification of the right masto id air cells. This is not significantly changed from 02/13/2023. No evidence for osseous erosion at thi s time the left mastoid air cells are clear. No evidence for intracranial involvement. No evidence of fracture. The transverse sinus and sigmoid sinus and vasculature appear without evidence for thrombu s. IMPRESSION: Right mastoid air cell effusion correlate for otomastoiditis. No organizing fluid collection at this time to suggest abscess. No CT evidence for involvement within the intracranial structures. No signif icant change from prior on 02/13/2023.
[2023-02-28 23:44] VITALS: BP 122/76; PULSE 93; RESP 18
== END 2023-02-28 23:45 | disposition home or self-care (01) ==
LOC: EC 17:35
DX: N64.4 Mastodynia (principal); E11.9 Type 2 diabetes mellitus without complications; E78.5 Hyperlipidemia, unspecified; F32.A Depression, unspecified; F41.9 Anxiety disorder, unspecified; M19.90 Unspecified osteoarthritis, unspecified site; F17.200 Nicotine dependence, unspecified, uncomplicated; Z79.51 Long term (current) use of inhaled steroids; Z79.84 Long term (current) use of oral hypoglycemic drugs; Z79.899 Other long term (current) drug therapy; Z88.8 Allergy status to other drugs, medicaments and biological substances
CPT/HCPCS: 36415; 93005; 80053; 84484; 85025; 85610; 85730; 81003; 70487; 99285; 96374; 96361; J1885; Q9967

== ENCOUNTER 2023-03-21 08:21 | Day surgery (SDC) | payer BC, MEDICARE ==
--- NOTE | 2023-03-20 18:45 | HP ---
HISTORY AND PHYSICAL CHIEF COMPLAINT: Fluid in the right ear. HISTORY OF PRESENT ILLNESS: The patient is a pleasant 77-year-old male, who was recently seen in my office complaining of having a plugged sensation in his right ear. The patient has recently been treated for a right mastoiditis with both steroids and with oral antibiotics. He states that he was placed on methotrexate for psoriasis in October. Once the methotrexate was stopped, he developed a plugged sensation in his right ear. He has seasonal allergies and he takes Yanira for this on a periodic basis. He states now that when he talks, it sounds as if he has his head stuck in a bucket. He does not have a history of having ear infections as a child. He denies any ear pain. At the time that he was seen in my office, clinical examination of the patient's right ear revealed chronic right serous otitis media, so called glue ear. It was therefore recommended that the patient undergo a right myringotomy with insertion of ventilation tube on IV sedation with MAC. PAST MEDICAL HISTORY: Reveals the patient has allergies to Bentyl. CURRENT MEDICATIONS: Include: 1. Xanax. 2. Losartan. 3. Citalopram. 4. Atorvastatin. 5. Metformin. 6. Albuterol. 7. Pulmicort. REVIEW OF SYSTEMS: CARDIOVASCULAR SYSTEM: Positive for hypertension. RESPIRATORY SYSTEM: Positive for COPD/emphysema. METABOLIC ENDOCRINE SYSTEM: Positive for hypercholesterolemia and type 2 diabetes mellitus. The remainder of the review of systems is unremarkable. PHYSICAL EXAMINATION: GENERAL: This patient is a very pleasant 77-year-old male, who is alert and cooperative. HEENT: The patient is normocephalic. Examination of the left ear reveals the left tympanic membrane is normal. The left middle ear space is free of any fluid or infection. Examination of the right ear reveals right middle ear space is filled with fluid. Pupils are equal, round, reactive to light and accommodation. Extraocular movements are within normal limits. Intranasal examination reveals moderate to severe septal deviation with compensatory hypertrophy of the inferior turbinates and a moderate amount of mucus on the mucous membranes and draining down the posterior pharynx. Examination of the oropharynx and the remainder of the head and neck exam are within normal limits. CHEST/CARDIOVASCULAR: Both lung santos are clear to percussion and auscultation. Lung sounds are somewhat distant. The patient is in regular sinus rhythm. S1 and S2 are present without any murmurs. Peripheral pulses are bilaterally symmetrical and within normal limits. ABDOMEN: There is no evidence of any masses, megaly, or tenderness. The abdomen is soft. SKIN: Unremarkable. MUSCULOSKELETAL/NEUROLOGICAL: All within normal limits. RECTAL: Deferred at this time because the patient has this done on a regular basis at his family physician's office. The remainder of the physical exam is essentially unremarkable. IMPRESSION: Chronic right serous otitis media. PLAN: The patient is scheduled to undergo a right myringotomy with insertion of a ventilation tube under IV sedation with MAC in a.m. Attention RNs in the presurgical area, I have not ordered any presurgical prophylactic antibiotics for this patient. If the pharmacy department sends any presurgical prophylactic antibiotics to the presurgical area for this patient, that medication should be returned to the pharmacy and the order should be cancelled. In addition, please make sure that the patient's account is credited appropriately. I have discussed the risks, benefits and alternative therapies for the above-mentioned procedure and for both sedation/analgesia as well as necessary blood product administration, if indicated, as they pertain to this patient. The patient has indicated his or her understanding and acceptance of the risks and procedures discussed. MMODL / IJN: [id number] /
[~2023-03-21 08:21] MED LIST: HYDROmorphone 0.5 MG/0.5 ML SYRINGE IVP PRN; LACTATED RINGERS 1,000 ML IV SCH; MIDAZOLAM 2 MG/2 ML VIAL IV PRN; Pre Op ABX Message 1 EACH MISC MISCELLANE ONE
[2023-03-21 08:58] VITALS: TEMP 97.5
[2023-03-21 09:05] LABS: Glucose,Whole Blood 116 mg/dL (70-110)
[2023-03-21] MEDS ORDERED: PROPOFOL 10 MG/ML 20 ML VIAL IV ONE (09:48)
[2023-03-21] MEDS ORDERED: MIDAZOLAM 2 MG/2 ML VIAL ONE (09:48)
[2023-03-21] MEDS ORDERED: KETAMINE 10 MG/ML 20 ML VIAL ONE (09:48)
[2023-03-21] MEDS ORDERED: fentaNYL (PF) 50 MCG/ML 2 ML AMP ONE (09:48)
[2023-03-21] MEDS ORDERED: OFLOXACIN 0.3% OPHTH DROPS 5 ML BOTTLE RIGHT EAR ONE (09:56)
[2023-03-21 10:27] VITALS: PULSE 86
[2023-03-21 10:35] VITALS: BP 120/65; RESP 20
--- NOTE | 2023-03-24 18:48 | OP ---
OPERATIVE REPORT DATE OF SERVICE : 03/21/2023 PREOPERATIVE DIAGNOSIS: Chronic right serous otitis media. POSTOPERATIVE DIAGNOSIS: Chronic right serous otitis media. ANESTHESIA: IV sedation with MAC. PROCEDURE PERFORMED: Right myringotomy with insertion of a plastic Swati-Bobbin ventilation tube. COMPLICATIONS: None. ESTIMATED BLOOD LOSS: Zero. DESCRIPTION OF PROCEDURE: The patient was placed on the operating table in a supine position. After an uneventful IV sedation, satisfactory sedation was obtained. Next, the patient's right ear was draped in usual and customary fashion. Following this, using the [employer] operating microscope and a #3 aural speculum, the right external auditory canal was cleansed of all wax and debris. Next, using a myringotomy knife, an incision was made in the anterior-inferior quadrant of the right tympanic membrane. The right middle ear space was suctioned free of all fluid and a Swati-Bobbin ventilation tube was inserted without difficulty. At this point, the procedure was terminated. There were no intraoperative complications. The patient tolerated the procedure well and was returned to the recovery room in satisfactory condition. MMODL / IJN: [id number] /
== END 2023-03-21 10:50 | disposition home or self-care (01) ==
LOC: OR 08:21
PROVIDERS: ATTEND Otolaryngology
DX: H65.21 Chronic serous otitis media, right ear (principal); I10 Essential (primary) hypertension; J44.9 Chronic obstructive pulmonary disease, unspecified; E78.5 Hyperlipidemia, unspecified; E11.9 Type 2 diabetes mellitus without complications; Z79.51 Long term (current) use of inhaled steroids; Z79.899 Other long term (current) drug therapy
CPT/HCPCS: 69436; J2250; J3010; J2704

== ENCOUNTER → 2023-06-17 | Outpatient (CLI) | payer MEDICARE ==
[2023-06-17 18:20] LABS: Basophils # (A) 0.03 X 10*3/uL (0.00-0.10); Basophils % (A) 0.3 %; Eosinophils # (A) 0.06 X 10*3/uL (0.04-0.35); Eosinophils % (A) 0.6 %; HCT 41.5 % (39.6-50.0); HGB 13.4 g/dL (13.0-17.0); Lymphocytes # (A) 2.33 X 10*3/uL (0.90-5.00); Lymphocytes % (A) 23.7 %; MCH 32.3 pg (27.0-32.0); MCHC 32.3 g/dL (32.0-37.0); Mean Platelet Volume 10.7 FL (9.5-12.2); Monocytes # (A) 0.64 X 10*3/uL (0.20-1.00); Monocytes % (A) 6.5 %; NRBC Per 100 WBC 0 X 10*3/uL (0.00-0.01); Neutrophils # (A) 6.75 X 10*3/uL (1.80-7.70); Neutrophils % (A) 68.6 %; Platelet Count 310 X 10*3/uL (140-440); RBC 4.15 X 10*6/uL (4.40-5.60); RDW 13.3 % (11.5-14.5); WBC 9.84 X 10*3/uL (4.50-10.00)
[2023-06-17 18:32] LABS: ALT 19 U/L (10-49); AST 16 U/L (14-35)
== END | disposition home or self-care (01) ==
LOC: LABWHC1 14:04
PROVIDERS: ATTEND Dermatology MOHS-Micrographic Surgery
DX: L40.0 Psoriasis vulgaris (principal)
CPT/HCPCS: 36415; 84450; 84460; 85025

== ENCOUNTER → 2023-09-17 | Outpatient (CLI) | payer MEDICARE ==
[2023-09-17 17:31] LABS: Basophils % (A) 0.3 %; Eosinophils % (A) 3.4 %; HCT 40.5 % (39.6-50.0); HGB 12.9 g/dL (13.0-17.0); MCHC 31.9 g/dL (32.0-37.0); MCV 100.5 FL (80.0-97.0); Mean Platelet Volume 10.3 FL (9.5-12.2); Monocytes % (A) 7.4 %; NRBC Per 100 WBC 0 X 10*3/uL (0.00-0.01); Neutrophils % (A) 60.6 %; Platelet Count 291 X 10*3/uL (140-440); RBC 4.03 X 10*6/uL (4.40-5.60); RDW 13.7 % (11.5-14.5); WBC 9.19 X 10*3/uL (4.50-10.00)
[2023-09-17 17:32] LABS: Basophils # (A) 0.03 X 10*3/uL (0.00-0.10); Eosinophils # (A) 0.31 X 10*3/uL (0.04-0.35); Lymphocytes # (A) 2.57 X 10*3/uL (0.90-5.00); Monocytes # (A) 0.68 X 10*3/uL (0.20-1.00); Neutrophils # (A) 5.57 X 10*3/uL (1.80-7.70)
[2023-09-17 18:05] LABS: ALT 35 U/L (10-49); AST 24 U/L (14-35)
== END | disposition home or self-care (01) ==
LOC: LABWHC1 09:18
PROVIDERS: ATTEND Dermatology MOHS-Micrographic Surgery
DX: L40.0 Psoriasis vulgaris (principal); L82.1 Other seborrheic keratosis; Z79.899 Other long term (current) drug therapy
CPT/HCPCS: 36415; 84450; 84460; 85025

== ENCOUNTER → 2024-03-29 | Outpatient (CLI) | payer MEDICARE ==
[2024-03-29 15:27] LABS: ALT 28 U/L (10-49); AST 21 U/L (14-35)
[2024-03-29 16:52] LABS: Basophils # (A) 0.03 X 10*3/uL (0.00-0.10); Basophils % (A) 0.4 %; Eosinophils % (A) 1.4 %; HCT 37.7 % (39.6-50.0); HGB 12.3 g/dL (13.0-17.0); Lymphocytes # (A) 2.04 X 10*3/uL (0.90-5.00); Lymphocytes % (A) 29.3 %; MCH 33.1 pg (27.0-32.0); MCHC 32.6 g/dL (32.0-37.0); MCV 101.3 FL (80.0-97.0); Mean Platelet Volume 10.1 FL (9.5-12.2); Monocytes # (A) 0.57 X 10*3/uL (0.20-1.00); Monocytes % (A) 8.2 %; NRBC Per 100 WBC 0 X 10*3/uL (0.00-0.01); Neutrophils # (A) 4.21 X 10*3/uL (1.80-7.70); Neutrophils % (A) 60.4 %; Platelet Count 291 X 10*3/uL (140-440); RBC 3.72 X 10*6/uL (4.40-5.60); RDW 13.3 % (11.5-14.5); WBC 6.97 X 10*3/uL (4.50-10.00)
== END | disposition home or self-care (01) ==
LOC: LABWHC1 08:47
PROVIDERS: ATTEND Dermatology MOHS-Micrographic Surgery
DX: L40.0 Psoriasis vulgaris (principal); Z79.899 Other long term (current) drug therapy
CPT/HCPCS: 36415; 82565; 84450; 84460; 85025